=== PATIENT | male | born 1960 | race Caucasian/White ===

== ENCOUNTER 2017-02-08 08:33 | Emergency (ER) | payer MEDICAID, OTHER ==
[~2017-02-08] VITALS: Ht 170.2 cm; Wt 84.5 kg
[~2017-02-08 08:33] MED LIST: FIORICET PO; NAPR-260 PO
[2017-02-08 08:35] VITALS: Ht 170.2 cm; Wt 84.5 kg
[2017-02-08] MEDS ORDERED: KETOROLAC 30 MG INJ IM STA (08:52)
[2017-02-08] MEDS ORDERED: IBUP-1542 PO (08:54)
[2017-02-08] MEDS ORDERED: HYDR-906 PO (08:54)
--- NOTE | 2017-02-08 08:59 | ERD ---
ER Documentation Chief Complaint Date/Time DATE: 02/08/17 TIME: 08:55 Chief Complaint pt bib self with c/o left back pain going down leg starting few days ago HPI Patient is a 56-year-old male who presents emergency department for concerns of lower back pain radiating down his left leg 1 week. Patient states her last 3 days pain was worse. Patient states the pain is worse with movement. Patient denies any heavy lifting or trauma. Patient denies taking any pain medication. Patient does state the pain is improved with warm packs. Patient denies any saddle anesthesia, urinary incontinence, stool incontinence, dysuria, hematuria , fever, chills, loss of consciousness. No recent surgeries. ROS All systems reviewed and are negative except as per history of present illness. Medications Home Meds Active Scripts Hydrocodone/Acetaminophen ([place] 5-325 Tablet) 1 Each Tablet, 1 TAB PO Q6H Y for PAIN, #10 TAB Prov:DEWAYNE HARE PA-C 02/08/17 Ibuprofen* (Motrin*) 600 Mg Tab, 600 MG PO Q6, #30 TAB Prov:DEWAYNE HARE PA-C 02/08/17 Naproxen* (Naprosyn*) 500 Mg Tablet, 500 MG PO BID Y for PAIN AND/OR INFLAMMATION, #30 TAB Prov:DG PARRA PA-C 07/12/15 Acetamin/Butalbital/Caffeine* (Fioricet*) 1 Tab Tab, 1 TAB PO Q4H Y for PAIN LEVEL 1-5, #15 TAB Prov:DG PARRA PA-C 07/12/15 Allergies Allergies: Coded Allergies: No Known Drug Allergy (Verified Allergy, Mild, 03/12/10) PMhx/Soc History of Surgery: No Anesthesia Reaction: No Hx Neurological Disorder: No Hx Respiratory Disorders: No Hx Cardiac Disorders: No Hx Psychiatric Problems: No Hx Miscellaneous Medical Probl: No Hx Alcohol Use: Yes (ONCE A MONTH) Hx Substance Use: No Hx Tobacco Use: Yes FmHx Family History: No diabetes Physical Exam Vitals Vital Signs Date Time Temp Pulse Resp B/P Pulse Ox O2 Delivery O2 Flow Rate FiO2 02/08/17 08:35 98.1 78 18 113/71 100 Physical Exam GENERAL: Well-developed, well-nourished male. Appears in no acute distress. HEAD: Normocephalic, atraumatic. EYES: Pupils are equally reactive bilaterally. EOMs grossly intact. No conjunctival erythema. ENT: Moist mucous membranes. No uvula deviation. No kissing tonsils. NECK: Supple. No meningismus. Normal range of motion of the neck. Nontender to palpation of cervical midline spine. LUNG: Clear to auscultation bilaterally. No rhonchi, wheezing, rales or coarse breath sounds. HEART: Regular rate and rhythm. No murmurs, rubs or gallops. BACK: No midline tenderness. Tender to palpation of the left lumbar paraspinalis muscles. Positive straight leg raise on the left. EXTREMITIES: Equal pulses bilaterally. No peripheral clubbing, cyanosis or edema. No unilateral leg swelling. NEUROLOGIC: Alert and oriented. Moving all four extremities without any difficulty. Normal speech. Steady gait. SKIN: Normal color. Warm and dry. No rashes or lesions. Results 24 hrs Current Medications Medications (Trade) Dose Ordered Sig/Xavier Route PRN Reason Start Time Stop Time Status Last Admin Dose Admin Ketorolac Tromethamine (Toradol) 30 mg ONCE STAT IM 02/08/17 08:52 02/08/17 08:53 DC Procedures/MDM MEDICAL DECISION MAKING: This is a 56-year-old male with lower back pain radiating down his left leg 1 week.. Vital signs were reviewed. Patient was afebrile. Patient denied any saddle anesthesia, urinary incontinence, bowel incontinence, or recent trauma. Patient denies any falls or trauma, x-ray imaging is indicated at this time. Patient was given Toradol for his pain. Patient reported improvement in pain prior to discharge. Given these findings, the patient's presentation is most consistent with lower back pain with left-sided sciatica. I have a much lower clinical concern for cauda equine syndrome, spinal fractures, epidural abscess, spinal metastases, osteomyelitis, aortic dissection, ruptured or leaking AA, pyelonephritis or nephrolithiasis. PRESCRIPTIONS: Ibuprofen, [place] DISCHARGE: At this time, patient is stable for discharge and outpatient management. RICE therapy and ROM exercises were advised to avoid stiffness. I have instructed the patient to follow-up with his/her primary care physician in 1-2 days. I have discussed with the patient the possibility of needing to see an military equipment specialist for further workup and imaging if the pain persists. I have instructed the patient to promptly return to the ER for any new or worsening symptoms including increased pain, swelling, warmth, urinary incontinence, stool incontinence, weakness or numbness. The patient and/or family expressed understanding of and agreement with this plan. All questions were answered. Home care instructions were provided. Departure Diagnosis: Primary Impression: Lower back pain Chronicity: acute Back pain laterality: left Sciatica presence: with sciatica Sciatica laterality: sciatica of left side Qualified Code: M54.42 - Acute left-sided low back pain with left-sided sciatica Condition: Stable Patient Instructions: Back Pain W/ Sciatica Additional Instructions: Call your primary care doctor TOMORROW for an appointment during the next 1-2 days.See the doctor sooner or return here if your condition worsens before your appointment time. DEWAYNE HARE PA-C Feb 08, 2017 08:59
== END 2017-02-08 09:04 | disposition home or self-care (01) ==
LOC: FTE 08:33
DX: M54.42 Lumbago with sciatica, left side (principal); Z87.891 Personal history of nicotine dependence
CPT/HCPCS: 96372; J1885; Z7502

== ENCOUNTER 2018-04-28 19:24 | Emergency (ER) | END 2018-04-28 22:35 | disposition home or self-care (01) ==

== ENCOUNTER 2018-11-26 21:23 | Emergency (ER) | payer OTHER ==
[~2018-11-26] VITALS: Ht 167.6 cm; Wt 70.0 kg
[~2018-11-26 21:23] MED LIST changes: +CYCL10TA7 PO; +HYDR-4011 PO; +IBUP-1542 PO; +MED4DP PO; -NAPR-260 PO; +NAPR-985 PO
[2018-11-26 21:34] VITALS: Ht 167.6 cm; Wt 70.0 kg
[2018-11-26] MEDS ORDERED: morphine 4 MG/ML VIAL IV STA (22:15)
[2018-11-26] MEDS ORDERED: ONDANSETRON 4 MG INJ IV STA (22:15)
[2018-11-26] MEDS ORDERED: SOD CHLORIDE 0.9% 100 ML ONE (23:06)
[2018-11-26] MEDS ORDERED: IOHEXOL 300MG/ML 150 ML BTL ONE (23:06)
[2018-11-27] MEDS ORDERED: ASPI-817 PO (00:24)
[2018-11-27] MEDS ORDERED: NICO2GUM46 BUCCAL (00:24)
[2018-11-27] MEDS ORDERED: RANI150T5 PO (00:24)
[2018-11-27] MEDS ORDERED: ROSU40TA22 PO (00:24)
[2018-11-27] MEDS ORDERED: BUPR150T11 PO (00:24)
[2018-11-27] MEDS ORDERED: CLOP75TA28 PO (00:24)
[2018-11-27] MEDS ORDERED: HEPARIN 1000 UNITS/ML 10 ML INJ IV ONE (01:00)
[2018-11-27] MEDS ORDERED: HEPARIN 25000 UNITS/250 ML 250 ML IV SCH (01:00)
--- NOTE | 2018-11-27 03:37 | ERD ---
ER Documentation Chief Complaint Chief Complaint bib ra from home for post op redness, pain, for 2 hours HPI This is a 57-year-old male with a past medical history of hypertension, hyperlipidemia, severe peripheral vascular disease status post an aortic and iliac grafting on November [address] Christi Epperson, a vascular surgeon at [facility], complicated by a thrombosis of the right iliac shunt for which the patient refused revascularization surgery and was ultimately discharged 2 days ago, now presenting with bilateral groin pain and swelling, left worse than right. The patient does not endorse numbness or tingling to the legs. His legs have not been cold or blue or pale. His legs have not been swollen. The patient has urvashi at the surgical sites from his recent surgery. There is no erythema or induration or purulence or fluctuance around the surgical sites. The patient denies feeling sick recently. The patient denies fever or chills. The patient has had no headache or vision changes. The patient does not endorse neck or back pain. The patient denies lightheadedness or dizziness. The patient has had no chest pain or trouble breathing. The patient denies nausea or vomiting. The patient denies abdominal pain. The patient denies changes to bowel movements or urination. The patient has had no focal deficits. The patient has had no weakness or numbness or tingling to the face or extremities. ROS All systems reviewed and are negative except as per history of present illness. Medications Home Meds Reported Medications Nicotine Polacrilex (Nicotine Gum) 2 Mg Gum, 2 MG BUCCAL Q2H, #1 BOX 11/27/18 Rosuvastatin Calcium (Rosuvastatin Calcium) 40 Mg Tablet, 40 MG PO QHS for 30 Days, #30 11/27/18 Bupropion Hcl (Bupropion Hcl SR) 150 Mg Tablet.sa, 150 MG PO BID for 90 Days, #180 11/27/18 Clopidogrel Bisulfate (Clopidogrel) 75 Mg Tablet, 75 MG PO DAILY for 30 Days, #30 11/27/18 Aspirin* (Aspirin* EC) 81 Mg Tablet.dr, 81 MG PO DAILY for 90 Days, #90 11/27/18 Ranitidine Hcl* (Ranitidine Hcl*) 150 Mg Tablet, 150 MG PO BID for 90 Days, #180 11/27/18 Discontinued Scripts Cyclobenzaprine Hcl* (Cyclobenzaprine Hcl*) 10 Mg Tablet, 10 MG PO TID, #15 TAB Prov:DG PARRA PA-C 04/28/18 Hydrocodone/Acetaminophen ([place] 5-325 Tablet) 1 Each Tablet, 1 TAB PO Q6H PRN for PAIN, #7 TAB Prov:DG PARRA PA-C 04/28/18 Methylprednisolone* (Medrol* DOSE PACK) 4 Mg/Dose-Pack Tab.ds.pk, 4 MG PO . DIRECTED, #1 PACKET Prov:DG PARRA PA-C 04/28/18 Naproxen* (Naprosyn*) 500 Mg Tablet, 500 MG PO BID PRN for PAIN AND/OR INFLAMMATION, #30 TAB Prov:DG PARRA PA-C 04/28/18 Hydrocodone/Acetaminophen ([place] 5-325 Tablet) 1 Each Tablet, 1 TAB PO Q6H PRN for PAIN, #10 TAB Prov:DEWAYNE HARE PA-C 02/08/17 Ibuprofen* (Motrin*) 600 Mg Tab, 600 MG PO Q6, #30 TAB Prov:DEWAYNE HARE PA-C 02/08/17 Naproxen* (Naprosyn*) 500 Mg Tablet, 500 MG PO BID PRN for PAIN AND/OR INFLAM MATION, #30 TAB Prov:DG PARRA PA-C 07/12/15 Acetamin/Butalbital/Caffeine* (Fioricet*) 1 Tab Tab, 1 TAB PO Q4H PRN for PAIN LEVEL 1-5, #15 TAB Prov:DG PARRA PA-C 07/12/15 Allergies Allergies: Coded Allergies: No Known Drug Allergy (Unverified Allergy, Mild, 11/27/18) PMhx/Soc History of Surgery: Yes (PERIPHERAL ARTERY GRAFT (11/24/18)) Anesthesia Reaction: No Hx Neurological Disorder: No Hx Respiratory Disorders: No Hx Cardiac Disorders: No Hx Psychiatric Problems: No Hx Miscellaneous Medical Probl: Yes (PERIPHERAL ARTERY DISEASE) Hx Alcohol Use: Yes (ONCE A MONTH) Hx Substance Use: No Hx Tobacco Use: Yes Smoking Status: Current some day smoker FmHx Family History: No diabetes Physical Exam Vitals Vital Signs Date Temp Pulse Resp B/P (MAP) Pulse Ox O2 O2 Flow FiO2 Time Delivery Rate 11/27/18 74 22 105/55 98 Room Air 03:00 (72) 11/27/18 74 24 119/78 98 Room Air 01:00 (92) 11/26/18 78 26 135/85 98 Room Air 23:00 (102) 11/26/18 98.1 77 19 127/85 100 21:34 (99) Physical Exam Const: No acute distress Head: Atraumatic Eyes: Normal Conjunctiva ENT: Normal External Ears, Nose and Mouth. Neck: Full range of motion. No meningismus. Resp: Clear to auscultation bilaterally Cardio: Regular rate and rhythm, no murmurs Abd: Soft, non tender, non distended. Urvashi along with the healing midline abdominal surgical site without erythema or induration or purulence or fluctuance or edema. Normal bowel sounds Skin: No petechiae or rashes Back: No midline or flank tenderness Ext: No cyanosis, or edema. Urvashi along the inguinal surgical sites without erythema or induration or purulence or fluctuance, there is edema and mild tenderness to both sides. Bilateral pedal pulses felt, faint, right greater than left Neur: Awake and alert Psych: Normal Mood and Affect Result Diagram: 11/26/18213511/26/182135 Results 24 hrs Laboratory Tests Test 11/26/18 21:36 White Blood Count 8.7 10^3/ul Red Blood Count 4.05 10^6/ul Hemoglobin 11.9 g/dl Hematocrit 35.5 % Mean Corpuscular Volume 87.7 fl Mean Corpuscular Hemoglobin 29.4 pg Mean Corpuscular Hemoglobin Concent 33.5 g/dl Red Cell Distribution Width 13.2 % Platelet Count 436 10^3/UL Mean Platelet Volume 9.6 fl Immature Granulocytes % 1.500 % Neutrophils % 65.8 % Lymphocytes % 24.2 % Monocytes % 7.7 % Eosinophils % 0.5 % Basophils % 0.3 % Nucleated Red Blood Cells % 0.0 /100WBC Immature Granulocytes # 0.130 10^3/ul Neutrophils # 5.7 10^3/ul Lymphocytes # 2.1 10^3/ul Monocytes # 0.7 10^3/ul Eosinophils # 0.0 10^3/ul Basophils # 0.0 10^3/ul Nucleated Red Blood Cells # 0.0 10^3/ul Prothrombin Time 14.7 Sec Prothrombin Time Ratio 1.1 INR International Normalized Ratio 1.14 Activated Partial Thromboplast Time 30.1 Sec Sodium Level 138 mmol/L Potassium Level 4.0 mmol/L Chloride Level 103 mmol/L Carbon Dioxide Level 23 mmol/L Anion Gap 12 Blood Urea Nitrogen 15 mg/dl Creatinine 0.85 mg/dl Est Glomerular Filtrat Rate mL/min > 60 mL/min Glucose Level 116 mg/dl Calcium Level 9.0 mg/dl Current Medications Medications Dose Sig/Xavier Start Time Status Last (Trade) Ordered Route PRN Stop Time Admin Dose Reason Admin Morphine 4 mg ONCE STAT 11/26/18 DC 11/26/18 Sulfate IV 22:15 22:19 (morphine) 11/26/18 22:16 Ondansetron 4 mg ONCE STAT 11/26/18 DC 11/26/18 HCl (Zofran IV 22:15 22:19 Inj) 11/26/18 22:16 IV Flush 10 ml STK-MED 11/26/18 DC (NS 10 ml) ONCE .ROUTE 23:06 11/26/18 23:07 Sodium 100 ml @ ud STK-MED 11/26/18 DC Chloride ONCE .ROUTE 23:06 11/26/18 23:07 Iohexol 150 ml STK-MED 11/26/18 DC (Omnipaque ONCE .ROUTE 23:06 300mg/ ml) 11/26/18 23:07 DC ONCE ONCE 11/27/18 DC Miscellaneous previous XX 01:00 hepa... 11/27/18 01:02 Information (* Miscellaneous Pharmacy Order) Heparin 5,600 unit ONCE ONCE 11/27/18 DC 11/27/18 Sodium IV 01:00 01:26 (Porcine) 11/27/18 01:02 (Heparin (1000 Units/ml)) Heparin 5,600 unit PER PROTOCOL 11/27/18 Sodium PRN IV 07:00 (Porcine) aPTT<47 (Heparin (1000 Units/ml)) Heparin 2,800 unit PER PROTOCOL 11/27/18 Sodium PRN IV 07:00 (Porcine) aPTT<47-57 (Heparin (1000 Units/ml)) Heparin 250 ml @ PER 11/27/18 11/27/18 Sodium 12.5 mls/hr PROTOCOL IV 01:00 01:25 (Porcine) Procedures/MDM MDM The patient's presentation warrants further investigation. Previous medical records, if available, were reviewed. LABS The patient's laboratory testing was obtained and reviewed. No emergent treatment was required unless described below. CBC: No E/o systemic infection. Normocytic anemia, not emergent. Thrombocytosis, likely reactive. Chemistry: No E/o severe acidosis or alkalosis or renal failure or diabetic ketoacidosis PT/INR: No E/o significant coagulopathy EKG EKG read by me: Rate/Rhythm: Regular rate and rhythm at a rate of 75 bpm Intervals: Normal. Incomplete right bundle branch block. [place]: Normal Impression: No evidence of acute ischemia or arrhythmia IMAGING Imaging and Radiology interpretation reviewed. CT Abd/Pelvis with runoff FINDINGS: CTA abdomen pelvis: The suprarenal abdominal aorta is patent, and normal in caliber without aneurysmal dilatation, dissection, or hemodynamically significant disease. Bilateral common iliac arteries and external iliac arteries are within normal limits. Both internal iliac arteries remain patent. The celiac trunk and superior mesenteric arteries are are patent and normal in caliber. The inferior mesenteric arteries not visualized. There are single main renal arteries bilaterally. There is no evidence of renal artery stenosis, FMD., or vasculitis. There is a ventral incision scar with skin urvashi. There is a hypodense fluid collection partially surrounding the left anterior lateral aspect of the infrarenal abdominal aorta measuring 4 x 3.8 cm. There is scattered gas within the fluid collection. There is no contrast extravasation into the collection. There is an infrarenal abdominal aortic bypass graft lying anterior to the [place] distal aorta. The tip in the [place] distal aorta is thrombosed with a large dense calcified plaque filling the lumen proximal to the bifurcation. The [place] common and external iliac arteries are thrombosed. The bypass graft is patent to the bifurcation. The left common and external iliac limb of the graft is patent. The right common iliac and external iliac segment of the graft is thrombosed. There is collateral flow low in the right internal iliac artery with reconstituted flow in the [place] right external iliac artery to the common femoral artery. There is reconstituted flow in the distal aspect of the left internal iliac artery. Right leg: There is a 4 x 3.5 cm hypodense right inguinal fluid collection anterior to the common femoral artery. The thrombosed right external iliac vessel is noted as noted above, there is reconstituted flow in the [place] right external iliac artery which reaches the right common femoral artery in addition, there is collateral flow through inferior epigastric arteries. The right common femoral artery, femoris are patent normal caliber without hemodynamically significant stenosis. The popliteal artery and proximal trifurcation vessels are normal in caliber. Left leg: There is a 3.6 x 3.4 cm hypodense fluid collection in the left inguinal region anterior to the left common femoral artery contains small amount of gas. There is no contrast extravasation into the collection. The left, external iliac graft is patent to its anastomosis to the left common femoral artery. The left common femoral artery, femoris are patent normal caliber without hemodynamically significant stenosis. The popliteal artery and proximal trifurcation vessels are normal in caliber. The partially visualized tibioperoneal trunk appears partially occluded. Additional findings: Visualized portions of the liver, gallbladder, and kidneys are within normal limits. Bladder is normally distended. The bowel mesentery otherwise unremarkable. Appendix is not identified. There is small amount of free fluid.. Limited evaluation lung base demonstrates bibasilar atelectasis. There are degenerative changes of the lumbar spine. IMPRESSION: 1. Status post recent surgery with ventral skin sutures and skin urvashi and an infrarenal periaortic fluid and gas collection. Infrarenal bilateral aortobifemoral bypass graft is present. The aortic and left aortofemoral segments of the graft are patent. There is thrombosis of the right aortofemoral segment and its origin. No contrast extravasation to suggest active hemorrhage. 2. Reconstituted flow in the [place] right external iliac artery to the common femoral artery with contributions from the inferior epigastric artery opacifying the right common femoral artery. Remainder of the right lower extremity runoff is patent without significant stenosis. 3. Left lower extremity runoff is patent to the visualized superior aspect of the tibioperoneal trunk. A central filling defect is present within the tibioperoneal trunk suggesting thrombosis. The distal runoff was not evaluated. 4. Bilateral low-density inguinal fluid collections. Small amount of gas within the left fluid collection. Likely represent subacute hematomas relates surgery. No contrast extravasation to suggest active hemorrhage. Critical findings reported to Dr. Saleh on 11/27/2018 12:31:26 AM. Electronically viewed and signed by Yuri Hanley MD on 11/27/2018 00:39 TREATMENT/DISPOSITION The patient presents with groin pain. The patient's CT is concerning. The patient has an occlusion of a recent right aortofemoral graft. There also appears to be a possible partial thrombosis of the tibioperoneal trunk on the left as well. Given the patient's significant peripheral vascular disease, I did place the patient on a heparin drip correlating with the DVT/PE nomogram. As the patient had surgery with a vascular surgeon at [facility], I felt that it would be appropriate to transfer the patient to their facility for further management of this surgical complication. I was able to speak to the on-call general surgery resident, rylan Yang for Dr. Epperson (the patient's vascular surgeon), who actually knows the patient very well. He reports that the patient's presentation today is actually very well-known. The patient was reportedly told prior to discharge that he actually did require operative intervention to open the thrombosed graft, but the patient declined any subsequent surgical intervention and was ultimately discharged on aspirin and Plavix. He reports that he would be happy to accept the patient to their facility for intervention for operative intervention if the patient is willing. In speaking with the patient, I expressed the importance of reassessment and possible surgical intervention to open up the graft. Unfortunately, the patient does not want to be transferred to [facility] or go through another surgery at this time, and would prefer to leave AGAINST MEDICAL ADVICE. The patient does appear to have distal revascularization due to collateral flow, as I do feel faint tibial pulses distally. I do not suspect an ischemic limb at this time, but I did express the importance of following up closely with the vascular surgeon and strongly encouraged him to reconsider the surgical intervention. The patient does have what appears to be bilateral hematomas, which are chronic according to the physician I spoke to at [facility]. There are, and expected postsurgical changes on the CT scan as well that do not require any emergent intervention. AMA The risks and benefits of admission versus discharge were discussed with the patient. The patient understands that a worsening thrombosis can lead to an ischemic limb which could ultimately lead to amputation, sepsis, hemodynamic compromise, cardiac arrest, permanent disability and . The patient expressed understanding of this and preferred to leave AGAINST MEDICAL ADVICE. The patient is welcome to return to the emergency department any time and would be happy to reassess him. Prescriptions: None Disclaimer: Inadvertent spelling and grammatical errors are likely due to EHR/dictation software use and do not reflect on the overall quality of patient care. Note that the electronic time recorded on this note does not necessarily reflect the actual time of the patient encounter. Departure Diagnosis: Primary Impression: Thrombosis of vascular graft Encounter type: sequela Qualified Codes: T82.868S - Thrombosis due to vascular prosthetic devices, implants and grafts, sequela Additional Impressions: Postoperative complication Surgical complication system/body Area: circulatory system Surgical complication type: other Qualified Codes: I97.89 - Other postprocedural complications and disorders of the circulatory system, not elsewhere classified Peripheral vascular disease Normocytic anemia Thrombocytosis Condition: Serious Patient Instructions: Peripheral Vascular Disease, Post Op Wound Check, Pain Additional Instructions: It is imperative that you call the office of your vascular surgeon, Dr. Epperson, to schedule an outpatient appointment. It is important that you reconsider the surgical intervention that was offered to you. Please understand that clotting with any graft can become worse. It can lead to decreased oxygen to the legs, which can cause pain, ischemia, necrosis, gangrene, which could one day require an amputation. There is also an increased risk of infection. Please return to the emergency department at any time and we would be happy to reassess you. It is very important that you continue taking your aspirin and Plavix as prescribed. Thank you for for coming to [facility] for your care today. Please ask your nurse or provider if you have questions about your care today and do not leave until all your questions have been answered. Please use any medications given as directed and follow-up with your doctor (or the doctor you were referred to) in the next 1-3 days. If you do not have a primary care doctor you may follow up at the [facility] or [facility] (listed below). You may also use motrin and tylenol as needed for fever and/or pain unless instructed otherwise by your provider or nurse. Indications for more urgent follow-up have been discussed, but you may return to the Emergency Department at ANY time for any worrisome or worsening symptoms. If you have abdominal pain, please know that no test or exam you received is perfect and you should follow up within 8 hours for continued pain. If you had any imaging studies today, such as an X-Ray or CT Scan, these studies will be reviewed later by a radiologist. You will be called if there are important findings that were not identified today, so make sure the contact information you provided at registration is correct. If you received any narcotic pain control medicine today, such as Vicodin, Morphine or Dilaudid, your coordination and judgment may be affected for a number of hours. Please do not drive or operate heavy machinery, and you may want someone to assist you at home. If you were given a prescription for narcotic medication, be aware that it is very addictive- use sparingly and only if necessary. PLEASE SEEK FURTHER EVALUATION AND MANAGEMENT AT YOUR DOCTORS OFFICE WITHIN THE NEXT 1-3 DAYS. IT IS YOUR RESPONSIBILITY TO MAKE AN APPOINTMENT FOR FOLOW-UP CARE. IF YOU HAVE A PRIMARY DOCTOR, PLEASE CALL THEIR OFFICE TO SCHEDULE AN APPOINTMENT FOR FOLLOW UP. IF YOU DO NOT HAVE A PRIMARY DOCTOR YOU CAN CALL OUR PHYSICIAN REFERRAL HOTLINE AT IF YOU CAN NOT AFFORD TO SEE A PHYSICIAN YOU CAN CHOSE FROM THE FOLLOWING [facility] CLINICS: [facility] [address] [facility] [address] [facility] [address] [facility] [address] [facility] [address] [facility] [address] [facility]. [facility]. [address] PANDA GRANGER MD Nov 27, 2018 03:17
[2018-11-27 03:48] VITALS: BP 118/78; PULSE 70; RESP 14
[2018-11-27] MEDS ORDERED: HEPARIN 1000 UNITS/ML 10 ML INJ IV PRN ×2 (07:00)
== END 2018-11-27 03:48 | disposition home or self-care (01) ==
LOC: E/R 21:23
DX: T82.868S Thrombosis due to vascular prosthetic devices, implants and grafts, sequela (principal); I97.89 Other postprocedural complications and disorders of the circulatory system, not elsewhere classified; D64.9 Anemia, unspecified; D47.3 Essential (hemorrhagic) thrombocythemia; I73.9 Peripheral vascular disease, unspecified; I10 Essential (primary) hypertension; F17.210 Nicotine dependence, cigarettes, uncomplicated; Y71.2 Prosthetic and other implants, materials and accessory cardiovascular devices associated with adverse incidents; Y77.2 Prosthetic and other implants, materials and accessory ophthalmic devices associated with adverse incidents; Z79.82 Long term (current) use of aspirin
CPT/HCPCS: 75635; 80048; 85025; 85610; 85730; 93005; 96374; 96375; J1644; J2270; J2405; Q9967; Z7502; Z7610